=== PATIENT | female | born 1975 | race Caucasian/White ===

== ENCOUNTER → 2023-09-11 | Outpatient (CLI) | payer SELFPAY, OTHER ==
--- NOTE | 2023-09-11 13:00 | US_ITS ---
INDICATION: PELVIC SWELLING EXAMINATION: Ultrasound US Pelvis Non-OB Complete TECHNIQUE: Transabdominal and transvaginal pelvic ultrasound was performed. Grayscale, spectral waveform, and color flow Doppler evaluation of the adnexa. COMPARISON: FINDINGS: UTERUS: Anteverted. The uterus measures 9.2 x 10.5 x 8.8 cm. There is a heterogeneous 8.2 x 7.0 x 7.2 cm probable posterior fibroid. The endometrial stripe measures 2 mm in AP diameter which is within normal limits. RIGHT OVARY: 2.9 x 2.0 x 2.2 cm. Non-enlarged, normal echogenicity. There is normal arterial inflow and venous outflow present in the right ovary. LEFT OVARY: 3.8 x 2.6 x 2.4 cm. Non-enlarged, normal echogenicity. There is normal arterial inflow and venous outflow present in the left ovary. FREE FLUID: None. US/Pelvic (Non ) IMPRESSION: Uterine fibroid. Electronically Signed: Tobias Haynes DO at 22:58 EDT Reading Location ID and State: [facility] / [place] Tel [phone], Service support ,
== END | disposition home or self-care (01) ==
PROVIDERS: PCP Nurse Practitioner Family; Referring Provider Urology; Visit Provider Urology
DX: R19.00 Intra-abdominal and pelvic swelling, mass and lump, unspecified site (principal)
CPT/HCPCS: 76856

== ENCOUNTER → 2023-10-08 | Outpatient (CLI) | payer OTHER, SELFPAY ==
--- NOTE | 2023-10-08 15:45 | EMB_PTH ---
PATIENT: HEMANT LAMAR LOC: [facility] U#:[id number] AGE/SX: 47/F ROOM: RE10/08/[address]: Dr. Katherine Carrington DO : 1975 BED: DIS: 10/08/2023 SPEC #: [id number] RECD: 10/08/23 16:50 STATUS: FRANDY RESheela #: [id number] MAGALY: 10/08/23 15:[address]: Katherine Carrington DEPT: SURGICAL PATHOLOGY RECD BY: Karina Cabezas ENTERED: 10/09/23 12:04 SP TYPE: ENDOM BX/C BRYAN DR: Teri Lamar, SPECIAL EDUCATION SCIENCE TEACHER-C Tissues: Endometrium, NOS Procedures: Surgery Specimen Level IV HEADER OPERATION: Endometrial biopsy PRE-OP DIAGNOSIS: Abnormal uterine bleeding TISSUE SUBMITTED: Endometrial lining MICROSCOPIC DIAGNOSIS Endometrial biopsy: Mildly disordered proliferative endometrium. MILKA/ 10/10/23 MICROSCOPIC DESCRIPTION Slides are reviewed. GROSS DESCRIPTION Received is one container labeled with the patient's name and not further designated. The specimen consists of multiple irregular fragments of de los santos soft tissue mixed with mucoid tissue that in aggregate measure 1.5 x 1.5 x 0.1 cm. The specimen is totally submitted in one cassette. MILKA/ 10/09/23 TC:5 CPT: 07044
== END | disposition home or self-care (01) ==
LOC: LABSPEC 16:54
PROVIDERS: PCP Nurse Practitioner Family; Referring Provider Obstetrics & Gynecology; Visit Provider Obstetrics & Gynecology
DX: N93.9 Abnormal uterine and vaginal bleeding, unspecified (principal)
CPT/HCPCS: 88305

== ENCOUNTER → 2023-10-15 | Outpatient (CLI) | payer SELFPAY, OTHER ==
--- NOTE | 2023-10-15 08:13 | MRI_ITS ---
MR Pelvis Female WO/W Contrast 10/15/2023 8:32 AM COMPARISON: Ultrasound 09/11/2023 CLINICAL HISTORY: pelvic mass TECHNIQUE: Multiplanar T1 and T2 weighted, diffusion and dynamic post-gadolinium images were obtained through the pelvis. FINDINGS: Uterus size: 9.3 x 10.4 x 8.7 cm There are a total of 1 leiomyoma, which does distort the endometrial cavity. Leiomyomas: 1) 8 x 7.7 x 9.1 cm; posterior; intramural;homogeneous low T2 signal intensity; heterogeneous enhancement Endometrium: No focal abnormalities seen. Right ovary: Unremarkable Left ovary: Unremarkable Free fluid: Trace Bones: No suspicious lesions MRI/Pelvis W/WO Contrast IMPRESSION: Solitary large 9 cm intramural fibroid in the posterior uterine body. Electronically Signed: Bj Sears MD at 20:50 EDT ,
== END | disposition home or self-care (01) ==
LOC: MRI 08:06
PROVIDERS: PCP Nurse Practitioner Family; Referring Provider Obstetrics & Gynecology; Visit Provider Obstetrics & Gynecology
DX: R19.00 Intra-abdominal and pelvic swelling, mass and lump, unspecified site (principal)
CPT/HCPCS: 72197; A9575

== ENCOUNTER → 2023-10-30 | Outpatient (CLI) | payer OTHER, SELFPAY ==
[2023-10-30 11:02] LABS: Absolute Lymphocyte Count 1.37 X10^3/uL (0.83-4.51); Absolute Neutrophil Count 2.6 X10^3/uL (2.0-7.7); Basophil# 0.03 X10^3/uL; Basophil% 0.7 % (0-1); Eosinophil# 0.08 X10^3/uL; Eosinophils% 1.8 % (0-5); Hematocrit 31.6 % (37-47); Hemoglobin 9.5 g/dL (12.0-15.0); Lymphocyte # 1.37 X10^3/ul (0.83-4.51); Lymphocyte % 30.1 % (19-41); Mean Corp Hgb Conc 30.1 g/dL (32-36); Mean Corpuscular Hgb 23.5 pg (27.0-32.0); Mean Corpuscular Volume 78.2 fL (81-99); Mean Platelet Vol. 8.7 fl (6.2-12.0); Monocyte# 0.44 X10^3/uL; Monocyte% 9.7 % (0-10); NRBC Flagged by Analyzer 0 % (0-5); Neutrophil # 2.61 X10^3/uL (2.7-7.7); Neutrophil % 57.3 % (47-70); Platelet Count 407 K/mm3 (150-450); RBC Distribution Width CV 17.2 % (11.6-14.6); Red Blood Count 4.04 M/mm3 (4.2-5.4); White Blood Count 4.6 K/mm3 (4.4-11.0)
== END | disposition home or self-care (01) ==
PROVIDERS: PCP Nurse Practitioner Family; Referring Provider Obstetrics & Gynecology; Visit Provider Obstetrics & Gynecology
DX: Z01.818 Encounter for other preprocedural examination (principal)
CPT/HCPCS: 36415; 85025; 86850; 86900; 86901

== ENCOUNTER 2023-11-13 08:15 | Day surgery (SDC) | payer SELFPAY, OTHER ==
[2023-11-13] VITALS (13 sets, daily range): BP systolic 91–110; BP diastolic 59–77; PULSE 65–88; RESP 10–18; TEMP 36.4–36.8; O2SAT 95–100; BMI 23.0
--- NOTE | 2023-11-13 | HYST_PTH ---
PATIENT: HEMANT LAMAR LOC: [facility] U#:[id number] AGE/SX: 48/F ROOM: RE11/13/[address]: Dr. Katherine Carrington DO : 1975 BED: DIS: 11/13/2023 SPEC #: [id number] RECD: 11/13/23 13:16 STATUS: FRANDY BEKAH #: [id number] MAGALY: 11/13/23 00:[address]: Katherine Carrington DEPT: SURGICAL PATHOLOGY RECD BY: Adrian Martinez ENTERED: 11/13/23 13:16 SP TYPE: HYSTERECT OTHR DR: Teri Lamar, ORDNANCE ENGINEERING TECHNICIAN-C Tissues: Uterus, NOS Procedures: Surgery Specimen Level V HEADER OPERATION: ERAS, laparoscopic robotic hysterectomy bilateral salpingectomy, cystoscopy PRE-OP DIAGNOSIS: Pelvic organ prolapse quantification stage 2 cystocele, uterine fibroid TISSUE SUBMITTED: Uterus and bilateral fallopian tubes MICROSCOPIC DIAGNOSIS Uterus and bilateral fallopian tubes, hysterectomy and bilateral salpingectomy: Cervix- Chronic inflammation and squamous metaplasia. Endometrium- proliferative endometrium. Myometrium- Intramural leiomyomas. One fallopian tube- no pathologic diagnosis. Second fallopian tube- Focal hydrosalpinx. MILKA/ 11/14/23 MICROSCOPIC DESCRIPTION Slides are reviewed. GROSS DESCRIPTION Received in fixative is one container labeled with the patient's name and designated uterus and bilateral fallopian tubes. The specimen consists of a hysterectomy specimen consisting of uterus with cervix in multiple pieces and detached bilateral fallopian tubes. The uterus with cervix in multiple pieces weighs 514 gm and measures in aggregate 16.0 x 20.0 x 8.0 cm. Uterus cannot be oriented as specimen is received in multiple pieces. One of the pieces of tissue consists of cervix and portion of lower uterine segment. The serosal surface is smooth. The ectocervical mucosa is unremarkable. The external os is oval in contour. The endocervical canal measures 5.5 cm in length and the endocervical mucosa is de [place] santos glistening and unremarkable. This piece also shows the endometrium cavity which measures 5.0cm in length and 1.5cm in width. The endometrium measures <0.1cm in thickness. The largest piece of uterus measures 10.0cm in greatest dimension. Section of this piece reveal a de los santos nodular mass measuring 8.0cm in greatest dimension. The second smaller piece also shows a nodular mass measuring 6.0cm in greatest dimension. Sections of these masses reveal de los santos whorled cut surfaces without areas of hemorrhage, necrosis or cystic degeneration. The uterine wall measures up to 2.5cm in thickness. Fallopian tubes are not identified as right or left. One of the fallopian tube measures 3.0cm in length and 0.6cm in diameter. Fimbrial end is identified. Sections reveal unremarkable cut surfaces. Second fallopian tube measures 4.0 cm in length and 0.6 cm in diameter. Fimbrial end is identified. Sections reveal focally dilated lumen filled with clear fluid. Director Of Guidance sections are submitted in 11 cassettes as follows: 1 - anterior cervix, 2 - posterior cervix, 3 & 4 - anterior uterine wall, 5 & 6 - posterior uterine wall, 7 & 8 - larger nodular mass, 9 - smaller nodular mass, 10 - one fallopian tube, 11 - second fallopian tube. SJ: 11/13/23 TC:1 CPT: 17144
[2023-11-13 08:54] LABS: Internal QC Validated? YES +Cl - CLEAR BKGD; Pregnancy, Urine Negative Negative
[2023-11-13] MEDS: WATER IV (08:54)
[2023-11-13] MEDS: GENTAMICIN IV (08:54)
[2023-11-13] MEDS: Acetaminophen 500 MG Tablet 1000 MG PO (08:54)
[2023-11-13] MEDS: DEXTROSE 5% IV (08:54)
[2023-11-13] MEDS: Lactated Ringers 1,000 ML 40 ML IV (08:54)
[2023-11-13] MEDS: Celecoxib 200 MG Capsule 400 MG PO (08:55)
[2023-11-13] MEDS: Phenazopyridine 95 MG Tablet 190 MG PO (08:55)
[2023-11-13] MEDS: Gabapentin 600 MG Tablet PO (08:55)
[2023-11-13] MEDS: dexAMETHasone 4 MG/ML Vial 8 MG IV (08:55)
[2023-11-13 09:04] LABS: Magnesium 2.2 mg/dL (1.6-2.6)
[2023-11-13] MEDS: Magnesium 1 GM over 15 mins IV (09:19)
[2023-11-13 09:25] LABS: Bedside Glucose 126 mg/dL (74-106)
--- NOTE | 2023-11-13 09:44 | PCM.HP.BLA ---
History and Physical Date of Admission: 11/13/23 Intake Vital Signs 10/07/2414:25 10/29/2409:02 10/29/2409:04 Height 5 ft 2 in 5 ft 2 in 5 ft 2 in Weight: 131 lb 127 lb 8 oz BMI 23.9 23.3 BP 110/74 112/75 Intake Visit Reasons: [facility] Home Health Aide Required: No Is patient in pain?: No Allergies Penicillins Allergy (Mild, Verified 11/01/23 11:44) PT UNSURE OF REACTION Medications NK 10/08/23 [History Confirmed 11/01/23] Post menopausal: No Patient : No : No PFSH Medical History (Updated 11/01/23 @ 11:49 by Mickie Longoria) Back pain History of echocardiogram Non-smoker Wears glasses Surgical History S/P hernia repair Family History Father Skin cancer Social History Smoking Status: Never smoker alcohol intake: never substance use type: does not use additional social history: - [facility] Cysto Details: HEMANT LAMAR is a 47 year old who presents for a pre-op exam she is a 47 year old (one section) who presents for discussion about treatment for fibroid uterus symptoms of heavy bleeding and pressure and pain. She saw Dr. martinez for pessary due to cervix prolapse. She failed 2 different pessaries and now wants to discuss hysterectomy with possible combo case with Dr. Martinez. This pressure and pain started around brittani time. She denies feeling a fullness or bloating. Another complaint is urinating 10 times a day and 5-6 times at night. She is not ready for any kind of sling procedure as her urinary incontinence is minimal. EMB was benign. She had a pap done recently this year. FINDINGS: UTERUS: Anteverted. The uterus measures 9.2 x 10.5 x 8.8 cm. There is a heterogeneous 8.2 x 7.0 x 7.2 cm probable posterior fibroid. The endometrial stripe measures 2 mm in AP diameter which is within normal limits. RIGHT OVARY: 2.9 x 2.0 x 2.2 cm. Non-enlarged, normal echogenicity. There is normal arterial inflow and venous outflow present in the right ovary. LEFT OVARY: 3.8 x 2.6 x 2.4 cm. Non-enlarged, normal echogenicity. There is normal arterial inflow and venous outflow present in the left ovary. FREE FLUID: None. US/Pelvic (Non ) IMPRESSION: Uterine fibroid. History 5 Elective abortions Hx Para 4 Spontaneous abortions Hx # Term Pregnancies Ectopic pregnancies Hx # Pregnancies Multiple births # of living children Past Pregnancies Del. Date Name GA/Weeks Outcome Route Bth Weight Gen Labor Lgth Anesthesia Del Locatn Provider FOB Unknown Nicole Unknown Adrian Unknown Jazmyne Unknown Janee ROS Const ROS Unobtainable: All systems reviewed & are unremarkable except as noted in H Resp Resp: Reports system reviewed and no additional complaints, except as documented; Denies cough GI GI: Reports as per HPI Psych Psych: Reports system reviewed and no additional complaints, except as documented Exam Const General: cooperative, healthy appearing, comfortable and no acute distress Resp Effort & Inspection: normal respiratory effort Skin General: no rashes or lesions noted Psych Appearance: grossly normal Speech and Movement: speech and movement normal Coding Level of Care Code Off vis,est,level 4 Diagnoses Pelvic organ prolapse quantification stage 2 cystocele N81.10 Uterine fibroid D25.9 Assessment and Plan Assessment and Plan (1) Pelvic organ prolapse quantification stage 2 cystocele: Status: Acute (2) Uterine fibroid: Status: Acute Orders: Orders CBC W/Diff, Automated 10/30/23 Z01.818 - Encounter for other preprocedural examination Type & Screen 10/30/23 Z01.818 - Encounter for other preprocedural examination Plan After discussing the patient's diagnosis and treatment plan options, patient wishes to proceed with surgical management. I have discussed with the patient the risks, benefits, and alternatives of the procedure which include but are not limited to risks of anesthesia, bleeding, infection, possible damage to bowel, bladder, or surrounding vasculature which could lead to additional surgery to evaluate any complications. Patient agrees to procedure and wishes to proceed. ACOG/uptodate references given for additional information regarding procedure. plan for total robotic hyst, bs and cysto
--- NOTE | 2023-11-13 10:31 | PCM.DC ---
Discharge Instructions Diet Discharge Diet: No restrictions Activity Discharge Activity: May Not Drive and May Shower May resume sexual activity in: 8 weeks Weight Bearing Status: Full weight bearing Lifting Restrictions: no lifting, pushing, pulling more than 10 pounds for 6 weeks Dressing / Incision Call your doctor if your incision/area has: Continuous Slow Oozing, Sudden Increased Bleeding, Increased Pain/ Swelling, Increased Redness and Foul Smelling Discharge Call your doctor if you observe: Fever of 101 or Higher, Using more than 1 pad per hour, Shortness of breath, Chest pain and Uncontrolled pain Suture Line Care: Avoid Pulling/Pushing and Avoid Pinching/Bending Remove Dressing in: 1 week (if present) Cleanse incision/area with: Soap & Water and Keep Dressing Clean & Dry Follow Up Care Please Follow Up With: Katherine Carrington DO When: Call to make an appointment with your doctor for a postop visit in 2 and 6 weeks Test Results: Test results from this visit will be discussed in further detail at your follow-up appointment, if applicable. Discharge Plan Admission Primary Reason for Your Visit: hysterectomy Attending Provider: Katherine Carrington Primary Care Provider: Teri Mendiola Instructions Print Language: Kinyarwanda Discharge Orders/Prescriptions Prescriptions: New ibuprofen 800 mg tablet 800 mg PO Q8H PRN (Reason: pain) Qty: 30 0RF ondansetron HCl 4 mg tablet 4 mg PO Q6H PRN (Reason: nausea and vomiting) Qty: 20 0RF oxycodone-acetaminophen [Percocet] 5-325 mg tablet 1 tab PO Q4H PRN (Reason: pain) 7 Days Qty: 20 0RF Rx Instructions: 1-2 tabs q 4 hrs as needed for pain Continued ferrous gluconate 225 mg (27 mg iron) tablet 225 mg PO BID Qty: 60 3RF Referrals / Follow Up: Teri Mendiola, CHARISSE-C [Primary Care Provider] - Disposition Disposition (needs filled in before D/C Order can be placed): Home, Self Care
[2023-11-13] MEDS: Clindamycin 900 MG/50 ML BAG 75 MG IV (10:32)
--- NOTE | 2023-11-13 12:48 | PCM.OPRPT ---
Problems Associated Problem List Diagnoses (1) Uterine fibroid: (2) Pelvic organ prolapse quantification stage 2 cystocele: Report of Operation Date of Procedure: 11/13/23 Pre-Operative Diagnosis: large fibroid uterus, cervical prolapse Post-Operative Diagnosis: large fibroid uterus, cervical prolapse Surgery/Procedure Performed:: total robotic hysterectomy, bilateral salpingectomy, cystoscopy Description of Surgical Findings:: Findings: 15 cm size uterus, normal appearing ovaries and tubes. On exploration of the abdominal cavity the adnexa, bowel, and liver were found to be normal. The uterus was found to be enlarged containing an approximate 10 cm posterior fibroid. Cystoscopy showed no evidence of leaking at approximately 250 cc of normal saline, positive ureteral orifices and jet flow are seen and no suture material was appreciated in the bladder. Reason for surgery: This is a 48year-old G5, P4 who presented to my office with history of back pain and uterine prolapse. Ultrasound showed an enlarged fibroid uterus. She has a history of section. The planned procedure is for a robotic hysterectomy the risks benefits and alternatives were discussed with the patient the patient had a clear understanding of the procedure and a consent form was signed. Surgeon: Katherine Carrington bundle tier and labeler: Rachid Baeza Type of Anesthesia: General Specimen's removed: uterus, cervix, fallopian tubes, fibroids Drains: none Estimated Blood Loss (mL): 200cc Fluids Replaced: 1600cc Description of Procedure: Procedure: The patient was placed in the dorsal low lithotomy position and prepped and draped in the normal sterile fashion both abdominally and in the perineum. Her legs were placed in stirrups a Sanchez catheter was inserted into the urethra without difficulty. A weighted speculum was placed in the vagina and a single-tooth tenaculum was used to grasp the anterior lip of the cervix. An advincula uterine manipulator was inserted through the cervix without complication. It was then tied into place at the 2 and 10:00 locations on the cervix. Gloves were changed and attention was turned towards the abdomen. Approximately 23 cm above the pubic symphysis in the midline, and after Marcaine injection, a 8 mm incision was made. An 8 mm trocar was inserted through the laparoscope, then inserted into the abdomen under direct visualization using the laparoscope. Good abdominal placement was noted and no complications were appreciated. An air seal device was utilized to create pneumoperitoneum. At 12 cm lateral to the midline on the left and right sides 8 mm accessory ports were placed. Next a left upper quadrant 8 mm teachers assistant port site was placed. The patient was placed in steep Trendelenburg position. The robot was docked. The hysterectomy was initiated first by taking down the round ligament on each side using the vessel sealer device. The fallopian tubes were also taken down using the vessel sealer device, cauterizing and cutting across the mesosalpinx. The broad ligament was then and taken down using the vessel sealer device. Next the bladder flap was taken down without complication. This was done using monopolar cautery to the level of the cervical vaginal junction. After the bladder flap was created, uterine vessels were then isolated and cauterized using the vessel sealer device and EndoShears. At this point the uterine vessels were taken down further starting from the ascending branch, dissecting along the edges of the cervix to the level of the cervical vaginal junction with hemostasis appreciated. The cervical vaginal junction was then using monopolar cautery in a circumferential pattern across the superior aspect of the cervix. The specimen was delivered through the vagina by bivalving the uterus and coring out the fibroid. The uterus weighed 506 grams and sent to pathology. The remaining vaginal cuff was then closed using a V lock suture. This was performed in a running technique. Excellent hemostasis was obtained and good closure was noted. Irrigation was then performed. All operative sites were noted to be hemostatic. A cystoscopy was performed with a 70 degree cystoscope through the urethra into the bladder without complication. The bladder was instilled with approximately 250 cc of normal saline. Intraoperative images were made. Ureteral orifices and jets were identified. No suture material was appreciated in the bladder. The bladder was then drained and cystoscope was removed. The abdominal cavity was again examined using the laparoscope after the robot was undocked. All operative sites were noted to be hemostatic. The trochars were removed under direct visualization without complication and pneumoperitoneum was reduced. At this point the skin was then closed using 4-0 Monocryl subcuticular stitch and sealed with surgical glue. The patient tolerated the procedure well sponge lap and needle counts were correct x2 the patient was taken to the recovery room in stable condition. Procedure Start Time: 10:58 Procedure Stop Time: 13:00 Complications none Admit VTE Documentation VTE Present on Admission: Yes VTE Pharm Prophylaxis ordered?: No Multi Select Codes Urinary/Genital Urinary/Genital CPT Codes: 11695 Cystoscopy and 46541 TLH+BS/O >250gr uterus
[2023-11-13] MEDS: Bupivacaine 0.25% 30 ML Vial (13:06)
[2023-11-13] MEDS: Lactated Ringers @ 70 MLS/HR 70 ML IV (13:48)
[2023-11-13] MEDS: Oxycodone/Apap 5/325 Tablet PO (15:36)
[2023-11-13] MEDS: Furosemide 20 MG/2 ML VIAL IV (19:05)
[2023-11-13] MEDS: Ibuprofen 400 MG Tablet 800 MG PO (19:15)
== END 2023-11-13 20:02 | disposition home or self-care (01) ==
LOC: SDC 08:16 → AC 08:17
PROVIDERS: Anesthesiology; PCP Nurse Practitioner Family; Referring Provider Obstetrics & Gynecology; Visit Provider Obstetrics & Gynecology
PROC: 0UT90ZZ Resection of Uterus, Open Approach (ICD-10-PCS; CPT 58573; principal; 2023-11-13 09:55)
DX: D25.1 Intramural leiomyoma of uterus (principal); N87.9 Dysplasia of cervix uteri, unspecified; N70.11 Chronic salpingitis; N81.2 Incomplete uterovaginal prolapse
CPT/HCPCS: 58573; S2900; 00840; 81025; 82962; 83735; 88307; J7120; J1940; J2405; J3475